=== PATIENT | male | born 1965 | race Caucasian/White ===

== ENCOUNTER 2018-05-18 07:20 | Emergency (ER) | payer BC ==
[2018-05-18 07:28] VITALS: BP 148/77
--- NOTE | 2018-05-18 08:51 | EDM.PDOC ---
ED HPI GENERAL MEDICAL PROBLEM - General Chief Complaint: Gastrointestinal Problem Stated Complaint: BLOOD IN STOOL Time Seen by Provider: 05/18/18 07:38 Source of Information: Reports: Patient, RN Notes Reviewed - History of Present Illness INITIAL COMMENTS - FREE TEXT/NARRATIVE: 52-year-old male comes in after of bloody diarrhea this morning. he does have history of partial colon resection about 3 or 4 years ago. states the healing process was slow and somewhat complicated. Once he did get healed up he has been doing well until the episode of bloody diarrhea this morning. he states his stools often are very "loose". today it was very loose with also "some blood in the toilet". there was just the one episode of very short time before arrival. no abdominal pain or cramping at this time. he's had no nausea or vomiting. he currently does not feel ill in any way. Left Lower Abdomen Pain Score (Numeric/FACES): 2 - Related Data Allergies Allergy/AdvReac Type Severity Reaction Status Date / Time Tetanus Vaccines and Toxoid Allergy Fever Verified 05/18/18 07:29 [Tetanus Vaccines & Toxoid] Home Meds: Home Meds . [No Known Home Meds] 05/18/18 [History] Past Medical History - Past Health History Medical/Surgical History: Denies Medical/Surgical History HEENT History: Reports: Impaired Vision Gastrointestinal History: Reports: Diverticulosis, Other (See Below) Other Gastrointestinal History: hernia Musculoskeletal History: Reports: Gout - Past Surgical History HEENT Surgical History: Reports: Tonsillectomy GI Surgical History: Reports: Cholecystectomy, Other (See Below) Other GI Surgeries/Procedures: sigmoidectomy Social & Family History - Tobacco Use Smoking Status *Q: Current Every Day Smoker Years of Tobacco use: 20 Packs/Tins Daily: 0.5 Used Tobacco, but Quit: No - Caffeine Use Caffeine Use: Reports: Coffee - Recreational Drug Use Recreational Drug Use: No ED ROS GENERAL - Review of Systems Review Of Systems: See Below Constitutional: Denies: Fever, Chills, Diaphoresis HEENT: Reports: No Symptoms Respiratory: Denies: Shortness of Breath Cardiovascular: Denies: Chest Pain GI/Abdominal: Reports: Diarrhea, Hematochezia. Denies: Abdominal Pain, Nausea, Vomiting Musculoskeletal: Reports: No Symptoms Skin: Reports: No Symptoms Neurological: Reports: No Symptoms ED EXAM, GI/ABD - Physical Exam Exam: See Below General Appearance: Alert, No Apparent Distress Eyes: Bilateral: Normal Appearance Throat/Mouth: Normal Inspection, Normal Oropharynx Head: No: Facial Swelling Neck: Supple, Full Range of Motion Respiratory/Chest: No Respiratory Distress, Lungs Clear, Normal Breath Sounds Cardiovascular: Regular Rate, Rhythm GI/Abdominal Exam: Soft, Non-Tender. No: Guarding Rectal (Males) Exam: Other (trace brown stool present and very small amt of "blood tinged mucous" no unusual mass or tenderness present) Extremities: Normal Inspection Skin Exam: Warm, Dry, Normal Color Course - Vital Signs Last Recorded V/S: Last Vital Signs Temp 97.3 F 05/18/18 07:25 Pulse 83 05/18/18 07:25 Resp 18 05/18/18 07:25 BP 148/77 H 05/18/18 07:25 Pulse Ox 94 L 05/18/18 07:25 - Orders/Labs/Meds Labs: Laboratory Tests 05/18/18 Range/Units 08:05 WBC 8.78 (4.23-9.07) K/mm3 RBC 4.70 (4.63-6.08) M/mm3 Hgb 14.4 (13.7-17.5) gm/L Hct 42.6 (40.1-51.0) % MCV 90.6 (79.0-92.2) fl MCH 30.6 (25.7-32.2) pg MCHC 33.8 (32.2-35.5) g/dl RDW Std Deviation 43.6 (35.1-43.9) fL Plt Count 222 (163-337) K/mm3 MPV 9.4 (9.4-12.3) fl Neut % (Auto) 72.6 H (34.0-67.9) % Lymph % (Auto) 16.1 L (21.8-53.1) % Polk % (Auto) 8.7 (5.3-12.2) % Eos % (Auto) 1.4 (0.8-7.0) Baso % (Auto) 0.5 (0.1-1.2) % Neut # (Auto) 6.39 H (1.78-5.38) K/mm3 Lymph # (Auto) 1.41 (1.32-3.57) K/mm3 Polk # (Auto) 0.76 (0.30-0.82) K/mm3 Eos # (Auto) 0.12 (0.04-0.54) K/mm3 Baso # (Auto) 0.04 (0.01-0.08) K/mm3 - Re-Assessments/Exams Free Text/Narrative Re-Assessment/Exam: 05/18/18 09:04 No further diarrhea or rectal bleeding while here in the ED awaiting lab work. CBC normal. Discharge instructions as documented. Departure - Departure Time of Disposition: 08:48 Disposition: Home, Self-Care 01 Condition: Fair Clinical Impression: Diarrhea, Rectal hemorrhage - Discharge Information Instructions: Hemorrhoids Referrals: PCP,None [Primary Care Provider] - Forms: ED Department Discharge, ED Return to Work/School Form Additional Instructions: Clear liquids recommended until this evening, than very careful bland diet as tolerated. Begin probiotic, available OTC. I recommend you take that twice daily for 1 week and thereafter as needed. Follow-up clinic with Dr. Hollingsworth or other general surgeon if symptoms not resolving over 1-2 days as expected or if there are any other further episodes of bleeding. Return to ED as needed, especially if you start having a large amount of rectal bleeding at any given time.
== END 2018-05-18 08:59 | disposition home or self-care (01) ==
LOC: JD.ED 07:20
DX: K62.5 Hemorrhage of anus and rectum (principal); R19.7 Diarrhea, unspecified; F17.210 Nicotine dependence, cigarettes, uncomplicated; Z88.7 Allergy status to serum and vaccine
CPT/HCPCS: 36415; 85025; 99283

== ENCOUNTER 2018-05-18 19:15 | Emergency (ER) | payer BC ==
--- NOTE | 2018-05-18 20:15 | EDM.PDOC ---
ED HPI GENERAL MEDICAL PROBLEM - General Chief Complaint: Gastrointestinal Problem Stated Complaint: RECTAL BLEEDING Time Seen by Provider: 05/18/18 19:29 Source of Information: Reports: Patient, Family () History Limitations: Reports: No Limitations - History of Present Illness INITIAL COMMENTS - FREE TEXT/NARRATIVE: Medical records indicate that the patient was seen this morning by Dr. Cas Herndon, for complaint of one episode of painless bloody diarrhea just prior to arrival to the ED. The patient was found to be hemodynamically stable. The patient had trace brown stool and blood tinged mucus on rectal examination. Workup included a CBC, which returned normal. The patient was discharged home with the recommendation that he begin taking a probiotic, then follow-up with Dr. Jere Hollingsworth if his symptoms have not resolved within 1-2 days. The patient now returns to the ED stating that he had an additional painless blood-streaked bowel movement around 15:00, then a painless maroon bloody bowel movement around 18:00. He reports abdominal cramps and rumbling, but no pain. He denies lightheadedness when he stands. The patient has a history of recurrent diverticulitis, requiring sigmoidectomy with temporary ileostomy in 2013. The patient does not have a PCP. - Related Data Allergies Allergy/AdvReac Type Severity Reaction Status Date / Time Tetanus Vaccines and Toxoid Allergy Fever Verified 05/18/18 19:24 [Tetanus Vaccines & Toxoid] Home Meds: Home Meds . [No Known Home Meds] 05/18/18 [History] Past Medical History HEENT History: Reports: Impaired Vision Gastrointestinal History: Reports: Diverticulosis (recurrent diverticulitis) Musculoskeletal History: Reports: Gout (possible) Endocrine/Metabolic History: Reports: Obesity/BMI 30+ - Past Surgical History HEENT Surgical History: Reports: Adenoidectomy, Oral Surgery (wisdom teeth extraction), Tonsillectomy GI Surgical History: Reports: Cholecystectomy (Sep 2015), Colon (sigmoidectomy 2013), Hernia, Abdominal (incisional, Sep 2015), Other (See Below) (ileostomy 2013, subsequently reversed) Social & Family History - Tobacco Use Smoking Status *Q: Never Smoker Tobacco Use Within Last Twelve Months: Smokeless Tobacco (Chews 3 cans/week) - Caffeine Use Caffeine Use: Reports: Coffee, Soda - Alcohol Use Alcohol Use History: Yes Date/Time of Last Drink Comment: Alcoholic, in recovery since 1994 - Recreational Drug Use Recreational Drug Use: No - Living Situation & Occupation Living situation: Reports: , with Spouse 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 ED EXAM, GI/ABD - Physical Exam Exam: See Below Exam Limited By: No Limitations General Appearance: Alert, WD/WN, No Apparent Distress Eyes: Bilateral: Normal Appearance, EOMI Ears: Normal External Exam, Hearing Grossly Normal Nose: Normal Inspection, No Blood Throat/Mouth: Normal Inspection, Normal Lips, Normal Voice, No Airway Compromise Head: Atraumatic, Normocephalic Neck: Normal Inspection, Full Range of Motion Respiratory/Chest: No Respiratory Distress, Lungs Clear, Normal Breath Sounds, No Accessory Muscle Use Cardiovascular: Normal Peripheral Pulses, Regular Rate, Rhythm, No Gallop, No JVD, No Murmur, No Rub GI/Abdominal Exam: Normal Bowel Sounds, Soft, Non-Tender, No Organomegaly, No Distention, No Abnormal Bruit, No Mass, Other (Obese) (Male) Exam: Deferred Rectal (Males) Exam: Normal Rectal Tone, Prostate Normal, Heme + Stool (maroon stool). No: Tenderness Back Exam: Normal Inspection, Full Range of Motion Extremities: Normal Inspection, Normal Range of Motion, No Pedal Edema, Normal Capillary Refill Neurological: Alert, Oriented, Normal Cognition, No Motor/Sensory Deficits Psychiatric: Normal Affect Skin Exam: Warm, Dry, Intact, Normal Color, No Rash Course - Vital Signs Last Recorded V/S: Last Vital Signs Temp 36.6 C 05/18/18 19:21 Pulse 73 05/18/18 19:21 Resp 16 05/18/18 19:21 BP 141/86 H 05/18/18 19:21 Pulse Ox 94 L 05/18/18 19:21 Orthostatic Blood Pressure [ 110/77 Standing] Orthostatic Blood Pressure [ 130/81 Supine] - Orders/Labs/Meds Orders: Active Orders 24 hr Category Date Time Status Orthostatic Vital Signs [RC] STAT Care 05/18/18 20:11 Active Labs: Laboratory Tests 05/18/18 Range/Units 20:44 Hgb 14.2 (13.7-17.5) gm/L Hct 41.3 (40.1-51.0) % - Re-Assessments/Exams Free Text/Narrative Re-Assessment/Exam: 05/18/18 20:34 The patient is orthostatic, therefore I have ordered a hemogram. 05/18/18 21:27 The patient's H/H is 14.2/41.3, essentially unchanged from this morning. I will discharge him home with a referral to Dr. Castellanos. I am recommending that the patient contact the office of Dr. Castellanos in the morning, to arrange for an outpatient colonoscopy. I explained to the patient that he will require GI prep before he can undergo a colonoscopy. I recommended that he return to the ED if he continues to have lower GI bleeds and develops lightheadedness upon standing. The patient and his appear to be quite anxious about the situation, not quite understanding why he is being discharged home. I explained that while upper GI bleed scan be very serious, lower GI bleeds tend to ooze, and that there are no medicines to stop the bleeding. If the patient loses enough blood that he becomes orthostatic, or his hemoglobin drops, then we would transfuse him,, which is why I am requesting that he return to the ED if he becomes lightheaded when standing. I explained that before the bleeding can be stopped, the patient would require a colonoscopy to determine the source of the bleeding , and before he can have the colonoscopy, he needs to be GI prepped. Despite my explanation, I am not convinced that the patient is satisfied with today's visit. Departure - Departure Time of Disposition: 21:32 Disposition: Home, Self-Care 01 Condition: Good Clinical Impression: Lower GI bleed - Discharge Information *PRESCRIPTION DRUG MONITORING PROGRAM REVIEWED*: Not Applicable *COPY OF PRESCRIPTION DRUG MONITORING REPORT IN PATIENT TAYLOR: Not Applicable Referrals: Laurel Castellanos MD [Physician] - Forms: ED Department Discharge Additional Instructions: You were seen in the emergency room for continued painless rectal bleeding. Workup in the ER included positional blood pressure checks, and a hemogram which returned normal. You are not intravascularly depleted because of your bleed, and you are not anemic. Follow up with the Surgeon Dr. Castellanos at the next available appointment, to arrange for a colonoscopy. If you continue to have bloody bowel movements and develop lightheadedness when you stand, please return to the ER for reevaluation. - My Orders Last 24 Hours: My Active Orders 05/18/18 20:11 Orthostatic Vital Signs [RC] STAT - Assessment/Plan Last 24 Hours: My Active Orders 05/18/18 20:11 Orthostatic Vital Signs [RC] STAT
[2018-05-18 21:40] VITALS: BP 138/88
== END 2018-05-18 21:39 | disposition home or self-care (01) ==
LOC: JD.ED 19:15
DX: K92.2 Gastrointestinal hemorrhage, unspecified (principal); F17.290 Nicotine dependence, other tobacco product, uncomplicated; Z88.7 Allergy status to serum and vaccine
CPT/HCPCS: 36415; 82270; 85014; 85018; 99283-25; 99284-25